=== PATIENT | female | born 1955 | race Caucasian/White ===

== ENCOUNTER 2019-11-10 11:41 | Day surgery (SDC) | payer OTHER ==
[~2019-11-10] VITALS: Ht 167.6 cm; Wt 67.3 kg
[~2019-11-10 11:41] MED LIST: ERGO50000 PO; EZET10-40 PO
[2019-11-10] MEDS ORDERED: Lyrica300 MG (12:13)
[2019-11-10] MEDS ORDERED: ATOR20 (12:13)
[2019-11-10] MEDS ORDERED: SERT100 (12:14)
[2019-11-10] MEDS ORDERED: FLUTICASONE-SA1 EAC1 (12:14)
[2019-11-10] MEDS ORDERED: ALLO100 (12:14)
[2019-11-10] MEDS ORDERED: GENT.3OPSO (12:14)
[2019-11-10] MEDS ORDERED: TRAZ50 (12:15)
[2019-11-10] MEDS ORDERED: METFORMIN ER G500 MG (12:15)
[2019-11-10] MEDS ORDERED: Norco 10-325 T1 EACH (12:15)
== END 2019-11-10 13:30 | disposition home or self-care (01) ==
LOC: ORSCSDS 11:41
PROVIDERS: Surgery
PROC: 0DJD8ZZ Inspection of Lower Intestinal Tract, Via Natural or Artificial Opening Endoscopic (ICD-10-PCS; principal; 2019-11-10 13:00)
DX: Z12.11 Encounter for screening for malignant neoplasm of colon (principal); K57.30 Diverticulosis of large intestine without perforation or abscess without bleeding; E11.9 Type 2 diabetes mellitus without complications; F41.8 Other specified anxiety disorders; E78.5 Hyperlipidemia, unspecified; I10 Essential (primary) hypertension; Z87.891 Personal history of nicotine dependence; Z79.84 Long term (current) use of oral hypoglycemic drugs; Z79.899 Other long term (current) drug therapy
CPT/HCPCS: 82947; J2405; J2704; J7120